=== PATIENT | female | born 1990 | race Caucasian/White ===

== ENCOUNTER 2022-05-20 16:27 | Emergency (ER) | payer OTHER ==
[~2022-05-20 16:27] MED LIST: BUSPAR 10MG10 MG PO; COLACE 100MG C100 MG PO; IBUPROFEN600 MG PO; KEFLEX CAP 500500 MG PO; NORCO 5-325 TA1 EACH PO; PRENATAL VITAM1 EAC8 PO; PRILOSEC OTC20 MG PO; ZANTAC150 MG PO
[2022-05-20 17:29] LABS: RED BLOOD COUNT 4.79 M/UL (4.00-5.10); WHITE BLOOD COUNT 7.6 K/UL (4.5-11.0)
[2022-05-20 17:36] LABS: BUN/CREATININE RATIO 13 (0-10)
[2022-05-20] MEDS ORDERED: TORADOL 10 MG T10 MG PO (18:29)
== END 2022-05-20 18:47 | disposition home or self-care (01) ==
LOC: ER1 16:27
PROVIDERS: Physician Assistant Medical
DX: N20.0 Calculus of kidney (principal); Z88.1 Allergy status to other antibiotic agents
CPT/HCPCS: 80053; 81001; 85025; 96372; 99284; J1885